=== PATIENT | male | born 1960 | race Caucasian/White ===

== ENCOUNTER 2024-02-21 01:26 | Emergency (ER) | payer MEDICARE, BC, SELFPAY ==
[2024-02-21 01:33] VITALS: BP 145/85; PULSE 82; RESP 20; TEMP 36.7; O2SAT 97; BMI 36.9
--- NOTE | 2024-02-21 02:46 | ED_ITS ---
HPI - General Adult General Chief complaint: Back Injury/Pain Stated complaint: Lower back pain Time Seen by Provider: 02/21/24 01:58 Source: patient Mode of arrival: ambulatory Limitations: no limitations History of Present Illness HPI narrative: 63-year-old male with known history of spinal stenosis presents to the emergency department with worsening back pain for the past 3 days. Has been having increased back problems for 5 weeks, history of spinal stenosis since 2018, has had appropriate imaging. Symptoms are mild most days any has some persistent numbness of his left foot but has had increased pain with radiation down the outer left thigh with numbness in the inner left ankle and calf area now for the past few days. It is difficult to get out of bed, pain is becoming more constant, having spasms. He had some leftover 15 mg morphine tablets that he was given in the ED 6 years ago and 10 mg Flexeril tablets that he tried tonight with minimal improvement in symptoms. Has not really been making full use of Tylenol and ibuprofen. No fever, no new trauma or injury. He did have a back surgery back in 1985 what sounds like a diskectomy of the lumbar region. No prior history of fusion. No loss of bowel or bladder function. Pain is mainly in the left lower back area, nothing on the right side, no specific weakness in the legs but movement is difficult due to the pain. Has previously been prescribed gabapentin in the past as well, currently only using 300 mg twice daily. Does have an upcoming appointment with his spine team in 2 days but will not be able to get a hold of anyone over the holiday weekend. Past medical history notable for hypertension, type 2 diabetes, obesity. Home medications reviewed listed as accurate per his report. No known drug allergies. ROS notable for the musculoskeletal symptoms as described above only. Negative for dove there are generalized, musculoskeletal, neurological, urinary or skin changes. Related Data Home Medications ?Medication ?Instructions ?Recorded ?Confirmed atorvastatin 10 mg tablet 10 mg PO DAILY 02/21/24 02/21/24 chlorthalidone 25 mg tablet 25 mg PO QAM 02/21/24 02/21/24 gabapentin 300 mg capsule 300 mg PO BID 02/21/24 02/21/24 lisinopril 5 mg tablet 5 mg PO DAILY 02/21/24 02/21/24 metformin 500 mg tablet,extended 1,000 mg PO BID 02/21/24 02/21/24 release 24 hr omeprazole 20 mg capsule,delayed 20 mg PO DAILY 02/21/24 02/21/24 release potassium chloride 20 mEq 20 meq PO BID 02/21/24 02/21/24 tablet,extended release(part/cryst) tamsulosin 0.4 mg capsule 0.4 mg PO DAILY 02/21/24 02/21/24 Allergies Allergy/AdvReac Type Severity Reaction Status Date / Time No Known Drug Allergies Allergy Verified 02/21/24 01:36 Exam Const: Vital Signs, click to edit/add: Vital Signs - 24 hr 02/21/24 01:33 Temperature 98.0 F Pulse Rate [Right Pulse Oximeter] 82 Respiratory Rate 20 Blood Pressure [Ri ght Upper Arm] 145/85 H Pulse Oximetry 97 Oxygen Delivery Me thod Room Air Documenting provider has reviewed patient's vital signs: yes Common normals: alert General appearance: well kempt Other: Uncomfortable due to pain but answers questions appropriately with no impairment. Well nourished, well hydrated in clean. HENMT: Common normals: normocephalic Head and scalp: normocephalic Face and sinus: normal facial exam Mouth: oral and palatal mucosa normal Throat: posterior oropharynx normal Eye: Common normals: conjunctivae normal General eye: normal appearance of both eyes Conjunctiva: conjunctiva(e) normal Neck & C-Spine: Common normals: full ROM, no lymphadenopathy and no meningeal signs Resp: Common normals: normal respiratory effort Effort & inspection: able to speak in complete sentences Cardio: Common normals: regular rate, regular rhythm, S1 normal heart sound, S2 normal heart sound and no murmurs Rate: regular rate Rhythm: regular rhythm Heart sounds: S1 normal and S2 normal : Common normals: no CVA tenderness Bladder/kidney exam: no CVA tenderness Back & Pelvis: Common normals: no CVA tenderness Other: Loss of lumbar lordosis and surgical scarring consistent with reported prior d iskectomy. Mild paraspinal muscle tenderness but no point bony tenderness of the thoracolumbar spine or SI area. Has about 30 forward degrees of flexion only but mainly just bent at the hip have her than the lower back. Pain is worse with extension. Spondylosis testing is positive on the left. More comfortable eating slightly forward. Straight leg lift positive also at 30? on left but limited exam due to pain. Right side is normal. Decreased sensation over left inner ankle and calf area but this is not new. Muscle strength is +0/5 in right and left legs, flexors and extensors. No weakness appreciated at the hip flexors either. Extremity: Common normals: no pedal edema Neuro: Sensorium/orientation: alert Meningeal signs: no meningeal signs Speech: speech normal Motor exam: strength 5/5 throughout and muscle tone normal throughout Psych: Appearance: well kempt Attitude: engaged Insight: insight good Judgement: judgment good Skin: Common normals: no rashes or lesions noted General skin exam: no rashes or lesions noted Course Course ED Course: 63-year-old male presenting with history of spinal stenosis and flare-up of symptoms consistent with that reported pathology. Questioning potentially a little bit of lumbar disc disease today as well but certainly no red flags for cauda equina syndrome, claudication, sudden motor deficit, shingles, new injury or other abnormalities of the lower extremity or joints. No fevers to suggest a septic arthritis. Counseled patient on findings, imaging will not be helpful in making new diagnosis overnight in the emergency department. Counseled 1st on appropriate use of Tylenol and ibuprofen and waxing these out for pain control. Will be given 10 mg dexamethasone here in the ED and then will continue on prednisone 20 mg b.i.d. for an additional 5 days. He will keep his appointment as scheduled with his spine team in 2 days. Given refill of Flexeril 15 tablets to use b.i.d. p.r.n.. Limited supply of 10 oxycodone tablets to use 1-2 tablets every 4-6 hours as needed for severe pain. Counseled he cannot have refills of this from the emergency department any further refills need to be handled by his spine team. Okay to use gentle sleep aids like Unisom, melatonin or Benadryl if needed. Alarm symptoms reviewed that would warrant ED presentation. He verbalizes understanding and agreement. Written instructions provided. Vital Signs Vital signs: Initial Vital Signs Temperature 98.0 F 02/21/24 01:33 Temperature Source Temporal Artery Scan 02/21/24 01:33 Pulse Rate 82 02/21/24 01:33 Respiratory Rate 20 02/21/24 01:33 Blood Pressure 145/85 H 02/21/24 01:33 Blood Pressure Mean 105 02/21/24 01:33 Blood Pressure Position Sitting 02/21/24 01:33 Pulse Oximetry 97 02/21/24 01:33 Oxygen Delivery Method Room Air 02/21/24 01:33 Vital Signs Temperature 98.0 F 02/21/24 01:33 Pulse Rate 82 02/21/24 01:33 Respiratory Rate 20 02/21/24 01:33 Blood Pressure 145/85 H 02/21/24 01:33 Pulse Oximetry 97 02/21/24 01:33 Oxygen Delivery Method Room Air 02/21/24 01:33 Temperature 98.0 F 02/21/24 01:33 Pulse Rate 82 02/21/24 01:33 Respiratory Rate 20 02/21/24 01:33 Blood Pressure 145/85 H 02/21/24 01:33 Pulse Oximetry 97 02/21/24 01:33 Oxygen Delivery Method Room Air 02/21/24 01:33 Discharge Plan Discharge Clinical Impression: Spinal stenosis of lumbar region, Lumbar radiculopathy Patient Disposition: Home w/ Parent or Adult Condition: Stable Instructions: Lumbar Spinal Stenosis (ED) Additional Instructions: As we discussed, your exam does seem consistent with a flare-up of your spinal stenosis. There does not seem to be any new pathology. It is not uncommon for this to worsen over time and to flare up on occasion. Your given a combination of anti-inflammatory pain medicine, a narcotic pain medication and a steroid here in the emergency department. I will take a couple of days for the steroid to fully kick in but it will be the most effective in calming down the inflammation. Please keep your appointment as scheduled for Thursday. For pain, it is important that you max out nonnarcotic options 1st. I want you taking Tylenol 1000 mg 4 times daily at least for the next 5 days. You will add and ibuprofen 600 mg every 6 hours as needed. If the pain is still unbearable, I have given you a limited supply of 10 oxycodone tablets to use 1-2 tablets up to every 4 hours as needed for severe pain. This must last you until your appointment on Thursday. We cannot give additional refills of this, it would need to come from your specialist or primary care doctor. The main base of your treatment will be to start prednisone. The dose of the dexamethasone that you were given in the emergency department will count as your 1st dose. Your next dose will be this evening. I recommend taking it at least 3 hours prior to bedtime as to lessen the risk of insomnia. Continued twice daily for 5 days unless otherwise directed by your intelligence research specialist. You have also been given Flexeril, a muscle relaxant to use mainly at bedtime but you may also use it during the day half to 1 full tablet as needed for muscle spasm. It is okay to use sleep aids such as melatonin, Benadryl and Unisom to help with sleep as well. Proper dosing a melatonin is 10 mg per night. It is safe to mix with the other medications. You should come to an emergency department if you suddenly lose control of bowel or bladder or are physically unable to move your leg. Use your walker to help you get around more safely. Activity Level: Activity as Tolerated Discharge Diet: Regular Prescriptions: No Action atorvastatin 10 mg tablet 10 mg PO DAILY chlorthalidone 25 mg tablet 25 mg PO QAM potassium chloride 20 mEq tablet,ER particles/crystals 20 meq PO BID tamsulosin 0.4 mg capsule 0.4 mg PO DAILY gabapentin 300 mg capsule 300 mg PO BID omeprazole 20 mg capsule,delayed release(DR/EC) 20 mg PO DAILY lisinopril 5 mg tablet 5 mg PO DAILY metformin 500 mg tablet extended release 24 hr 1,000 mg PO BID Follow Up/Referrals: Cornelius Quinn MD [Primary Care Provider] - Stand Alone Forms: [facility] Info Instructions
[2024-02-21 02:48] VITALS: TEMP 36.7
[2024-02-21] MEDS: dexAMETHasone 4 MG TABLET 10 MG PO (02:48)
[2024-02-21] MEDS: OXYCODONE 5 MG TABLET 10 MG PO (02:48)
[2024-02-21] MEDS: KETOROLAC 10 MG TABLET PO (02:48)
[2024-02-21] MEDS: ACETAMINOPHEN 500 MG TABLET 1000 MG PO (02:48)
[2024-02-21 02:50] VITALS: BP 132/74; PULSE 79; RESP 20; TEMP 36.7; O2SAT 97
[2024-02-21 02:51] VITALS: BP 132/74; PULSE 79; RESP 20; TEMP 36.7
== END 2024-02-21 02:51 | disposition home or self-care (01) ==
PROVIDERS: Emergency Provider Family Medicine; PCP Family Medicine
DX: M48.061 Spinal stenosis, lumbar region without neurogenic claudication (principal); M54.16 Radiculopathy, lumbar region
CPT/HCPCS: 99283; A9270

== ENCOUNTER 2024-10-21 06:58 | Outpatient (CLI) | payer MEDICARE, BC, SELFPAY ==
--- NOTE | 2024-10-21 08:33 | P.ANES_ITS ---
Anesthesia Charges Start Date/Time Anesthesia Start Date: 10/21/24 Anesthesia Start Time: 07:59 Stop Date/Time Anesthesia Stop Date: 10/21/24 Anesthesia Stop Time: 08:31 Coding CPT Codes CPT Codes: JOHN LWAmbrosio INTST NDSC NOS - [id number] ([id number]) P2 - PATIENT W/MILD SYST DISEASE, QX - DENTAL INTERN SVC W/ MD MED DIRECTION, QK - SPORTSPERSONS 2-4 CNCRNT ANES PROC
--- NOTE | 2024-10-21 08:33 | W.ANESCHARGE ---
Anesthesia Charges Start Date/Time Anesthesia Start Date: 10/21/24 Anesthesia Start Time: 07:59 Stop Date/Time Anesthesia Stop Date: 10/21/24 Anesthesia Stop Time: 08:31 Coding CPT Codes CPT Codes: JOHN LWAmbrosio INTST NDSC NOS - [id number] ([id number]) P2 - PATIENT W/MILD SYST DISEASE, QX - FELT STRIP FINISHER SVC W/ MD MED DIRECTION, QK - VINE [employer] FARMING SUPERVISOR 2-4 CNCRNT ANES PROC
--- NOTE | 2024-10-21 08:55 | P.ANES_ITS ---
Anesthesia Charges Start Date/Time Anesthesia Start Date: 10/21/24 Anesthesia Start Time: 07:59 Stop Date/Time Anesthesia Stop Date: 10/21/24 Anesthesia Stop Time: 08:31 Coding CPT Codes CPT Codes: JOHN LWR INTST NDSC NOS - [id number] ([id number]) P2 - PATIENT W/MILD SYST DISEASE, QK - EXHIBITION CARVER 2-4 CNCRNT ANES PROC, QX - EVENT PROMOTIONS COORDINATOR SVC W/ MD MED DIRECTION
--- NOTE | 2024-10-21 08:55 | W.ANESCHARGE ---
Anesthesia Charges Start Date/Time Anesthesia Start Date: 10/21/24 Anesthesia Start Time: 07:59 Stop Date/Time Anesthesia Stop Date: 10/21/24 Anesthesia Stop Time: 08:31 Coding CPT Codes CPT Codes: JOHN LWR INTST NDSC NOS - [id number] ([id number]) P2 - PATIENT W/MILD SYST DISEASE, QK - SOLE BLACKER 2-4 CNCRNT ANES PROC, QX - ABRASIVE SAWYER SVC W/ MD MED DIRECTION
== END 2024-10-21 06:59 | disposition home or self-care (01) ==
LOC: OP CLINIC 06:59
PROVIDERS: PCP Family Medicine; Visit Provider Internal Medicine Gastroenterology
DX: Z12.11 Encounter for screening for malignant neoplasm of colon (principal); D12.4 Benign neoplasm of descending colon; D12.2 Benign neoplasm of ascending colon
CPT/HCPCS: 00811; 45385; 88305; J2704